=== PATIENT | male | born 1950 | race Native Hawaiian/Other Pacific Islander ===

== ENCOUNTER 2017-03-19 13:56 | Outpatient (CLI) | payer OTHER ==
[2017-03-19 14:35] LABS: PLATELET COUNT 207 K/uL (142-355)
[2017-03-19 14:52] LABS: POTASSIUM 4.5 mmol/L (3.6-5.2); SODIUM 140 mmol/L (136-145)
== END 2017-03-19 19:15 | disposition home or self-care (01) ==
LOC: LAB 13:56
PROVIDERS: Physician Assistant
DX: I10 Essential (primary) hypertension (principal); E78.4 Other hyperlipidemia; E11.9 Type 2 diabetes mellitus without complications; N40.0 Benign prostatic hyperplasia without lower urinary tract symptoms
CPT/HCPCS: 80053; 80061; 83036; 84153; 84439; 84443; 85027; 85651

== ENCOUNTER 2018-08-23 06:01 | Emergency (ER) | payer OTHER ==
[~2018-08-23] VITALS: Ht 165.1 cm; Wt 105.2 kg
[2018-08-23 06:46] LABS: PLATELET COUNT 177 K/uL (142-355)
[2018-08-23 07:32] VITALS: BP 148/77; TEMP 98
== END 2018-08-23 07:33 | disposition home or self-care (01) ==
LOC: ED 06:01
DX: J02.9 Acute pharyngitis, unspecified (principal)
CPT/HCPCS: 36415; 80053; 85027; 86308; 87502; 87651; 99283

== ENCOUNTER 2019-02-20 07:14 | Outpatient (CLI) | payer OTHER ==
[2019-02-20 08:36] LABS: PLATELET COUNT 190 K/uL (142-355)
[2019-02-20 08:42] LABS: POTASSIUM 4.1 mmol/L (3.6-5.2); SODIUM 138 mmol/L (136-145)
== END 2019-02-20 23:32 | disposition home or self-care (01) ==
LOC: LABW 07:14
PROVIDERS: Physician Assistant
DX: I10 Essential (primary) hypertension (principal); E78.5 Hyperlipidemia, unspecified; E11.9 Type 2 diabetes mellitus without complications; J44.9 Chronic obstructive pulmonary disease, unspecified
CPT/HCPCS: 36415; 80053; 80061; 82306; 83735; 84153; 84443; 85027

== ENCOUNTER 2019-06-23 08:33 | Emergency (ER) | payer OTHER ==
[~2019-06-23] VITALS: Ht 165.1 cm; Wt 98.4 kg
[2019-06-23 09:24] LABS: PLATELET COUNT 188 K/uL (142-355)
[2019-06-23 09:33] LABS: POTASSIUM 3.8 mmol/L (3.6-5.2)
[2019-06-23 09:55] LABS: PARTIAL THROMBOPLASTIN TIME 22.8 SECONDS (24.5-33.6)
[2019-06-23 11:58] VITALS: BP 150/80; TEMP 98
== END 2019-06-23 11:58 | disposition home or self-care (01) ==
LOC: ED 08:33
PROVIDERS: Family Medicine
DX: R51 Headache (principal); R55 Syncope and collapse
CPT/HCPCS: 80053; 81000; 85027; 85610; 85730; 99283

== ENCOUNTER 2019-10-18 13:46 | Outpatient (CLI) | payer OTHER ==
[2019-10-18 14:45] LABS: POTASSIUM 3.6 mmol/L (3.6-5.2)
== END 2019-10-18 19:29 | disposition home or self-care (01) ==
LOC: LAB 13:46
PROVIDERS: Internal Medicine
DX: E11.9 Type 2 diabetes mellitus without complications (principal); E78.49 Other hyperlipidemia; E83.42 Hypomagnesemia; I10 Essential (primary) hypertension
CPT/HCPCS: 80053; 80061; 81000; 82043; 82570; 83036; 83735; 84439; 84443; 84550

== ENCOUNTER 2020-01-24 11:31 | Inpatient (IN) | payer OTHER ==
[~2020-01-24] VITALS: Ht 157.5 cm; Wt 94.4 kg
[2020-01-24 13:57] LABS: PLATELET COUNT 193 K/uL (142-355)
[2020-01-24 14:28] LABS: PARTIAL THROMBOPLASTIN TIME 22.7 SECONDS (24.5-33.6)
[2020-01-24 14:37] LABS: POTASSIUM 3.8 mmol/L (3.6-5.2); SODIUM 135 mmol/L (136-145)
[2020-01-24 15:34] VITALS: BP 125/62; TEMP 97.9; Ht 157.5 cm; Wt 94.4 kg
[2020-01-24 16:00] VITALS: BP 107/59; TEMP 97.9
[2020-01-24 20:00] VITALS: BP 153/90; TEMP 97.8
[2020-01-25] VITALS: BP 128/62; TEMP 98.4
[2020-01-25 04:00] VITALS: BP 95/55; TEMP 97.7
[2020-01-25] MEDS ORDERED: GLIP10TA55 PO (04:25)
[2020-01-25] MEDS ORDERED: ALLO300T23 PO (04:25)
[2020-01-25] MEDS ORDERED: METF500T PO (04:27)
[2020-01-25] MEDS ORDERED: NEURONTIN 100M100 MG PO (04:28)
[2020-01-25] MEDS ORDERED: TERAZOSIN2 MG PO (04:32)
[2020-01-25] MEDS ORDERED: FURO20TA67 PO (04:32)
[2020-01-25] MEDS ORDERED: CALCIUM 500+D 51 TAB PO (04:34)
[2020-01-25] MEDS ORDERED: PRAVACHOL20 MG PO (04:35)
[2020-01-25] MEDS ORDERED: METO50TA27 PO (04:36)
[2020-01-25] MEDS ORDERED: ASA LOW DOSE81 MG PO (04:37)
[2020-01-25] MEDS ORDERED: SUPER B COMP PO (04:38)
[2020-01-25] MEDS ORDERED: B-6100 MG PO (04:39)
[2020-01-25] MEDS ORDERED: IRON325 MG PO (04:40)
[2020-01-25] MEDS ORDERED: VITAMIN C TR/R500 MG PO (04:42)
[2020-01-25 06:17] LABS: PLATELET COUNT 172 K/uL (142-355)
[2020-01-25 06:19] LABS: POTASSIUM 3.2 mmol/L (3.6-5.2)
[2020-01-25 08:09] VITALS: BP 131/58; TEMP 98.3
[2020-01-25 12:06] VITALS: BP 131/75; TEMP 97.8
[2020-01-28] MEDS ORDERED: RISP0.25 PO (16:13)
[2020-01-28] MEDS ORDERED: ESCI10TA PO (16:14)
[2020-01-28] MEDS ORDERED: DONE5TAB PO (16:14)
== END 2020-01-25 15:00 | disposition other institution (70) | DRG 125 ==
LOC: MED/SURG 11:31
PROVIDERS: Internal Medicine Endocrinology, Diabetes & Metabolism; ADMIT Internal Medicine
DX: R44.1 Visual hallucinations (principal); R07.89 Other chest pain; R41.82 Altered mental status, unspecified; I10 Essential (primary) hypertension; I25.10 Atherosclerotic heart disease of native coronary artery without angina pectoris; E11.9 Type 2 diabetes mellitus without complications; E78.49 Other hyperlipidemia; R06.02 Shortness of breath
CPT/HCPCS: 80048; 80053; 81000; 82306; 82550; 82553; 82607; 82746; 84425; 84484; 85027; 85610; 85730; 87635; 93005; 94760; J1650; J1940; U0002

== ENCOUNTER 2020-02-29 08:52 | Emergency (ER) | payer OTHER ==
[~2020-02-29] VITALS: Ht 157.5 cm; Wt 96.2 kg
[~2020-02-29 08:52] MED LIST: ALLO300T23 PO; ASA LOW DOSE81 MG PO; B-6100 MG PO; CALCIUM 500+D 51 TAB PO; DONE5TAB PO; ESCI10TA PO; FURO20TA67 PO; GLIP10TA55 PO; IRON325 MG PO; METF500T PO; METO50TA27 PO; NEURONTIN 100M100 MG PO; PRAVACHOL20 MG PO; RISP0.25 PO; SUPER B COMP PO; TERAZOSIN2 MG PO; VITAMIN C TR/R500 MG PO
[2020-02-29 08:55] VITALS: BP 149/69; TEMP 98.5
[2020-02-29 09:46] LABS: PLATELET COUNT 216 K/uL (142-355)
[2020-03-04] MEDS ORDERED: ALLO300T23 PO (00:23)
[2020-03-04] MEDS ORDERED: SUPER B COMP PO (00:24)
[2020-03-04] MEDS ORDERED: ASA LOW DOSE81 MG PO (00:24)
[2020-03-04] MEDS ORDERED: DONE5TAB PO (00:25)
[2020-03-04] MEDS ORDERED: ESCI10TA PO (00:25)
[2020-03-04] MEDS ORDERED: NEURONTIN 100M100 MG PO (00:26)
[2020-03-04] MEDS ORDERED: FURO20TA67 PO (00:26)
[2020-03-04] MEDS ORDERED: METO50TA27 PO (00:27)
[2020-03-04] MEDS ORDERED: METF500T PO (00:27)
[2020-03-04] MEDS ORDERED: GLIP10TA55 PO (00:27)
[2020-03-04] MEDS ORDERED: RISP0.25 PO (00:28)
[2020-03-04] MEDS ORDERED: PRAVACHOL20 MG PO (00:28)
[2020-03-04] MEDS ORDERED: TERAZOSIN2 MG PO (00:28)
[2020-03-04] MEDS ORDERED: ACET-206 PO (00:29)
[2020-03-04] MEDS ORDERED: MAGN400T4 PO (00:31)
[2020-03-04] MEDS ORDERED: MEMA5TAB PO (00:34)
[2020-03-04] MEDS ORDERED: CALCIUM 500+D 51 TAB PO (00:35)
== END 2020-02-29 11:05 | disposition other institution (70) ==
LOC: ED 08:52
DX: R41.0 Disorientation, unspecified (principal); Z11.59 Encounter for screening for other viral diseases; Z79.899 Other long term (current) drug therapy
CPT/HCPCS: 80053; 80307; 80320; 81000; 85027; 87502; 87635; 87651; 93005; 99283; 99284; 99285; G2023; U00003

== ENCOUNTER 2020-03-04 15:51 | Inpatient (IN) | payer OTHER ==
[~2020-03-04 15:51] MED LIST changes: +ACET-206 PO; +MAGN400T4 PO; +MEMA5TAB PO
== END 2020-03-23 10:15 | disposition still patient (30) ==
LOC: PAVC 15:51
PROVIDERS: ADMIT Internal Medicine
CPT/HCPCS: 87635; U0002

== ENCOUNTER 2020-03-05 04:34 | Outpatient (CLI) | payer OTHER ==
[2020-03-05 05:44] LABS: PLATELET COUNT 245 K/uL (142-355)
[2020-03-05 06:12] LABS: POTASSIUM 3.9 mmol/L (3.6-5.2)
== END 2020-03-05 20:33 | disposition home or self-care (01) ==
LOC: LAB 04:34
PROVIDERS: Internal Medicine
DX: I11.0 Hypertensive heart disease with heart failure (principal); E78.49 Other hyperlipidemia; E11.9 Type 2 diabetes mellitus without complications; I25.119 Atherosclerotic heart disease of native coronary artery with unspecified angina pectoris; I50.9 Heart failure, unspecified
CPT/HCPCS: 80053; 80061; 83036; 83880; 84439; 84443; 85027; 87081

== ENCOUNTER 2020-03-11 05:40 | Outpatient (CLI) | payer OTHER ==
[2020-03-11 08:06] LABS: POTASSIUM 4.2 mmol/L (3.6-5.2)
== END 2020-03-11 19:25 | disposition home or self-care (01) ==
LOC: LAB 05:40
PROVIDERS: Internal Medicine
DX: R79.89 Other specified abnormal findings of blood chemistry (principal); E61.2 Magnesium deficiency
CPT/HCPCS: 80053; 83735

== ENCOUNTER 2020-03-20 10:55 | Outpatient (CLI) | payer OTHER | END 2020-03-20 19:50 | disposition home or self-care (01) | LOC: LAB 10:55 | DX: R19.5 Other fecal abnormalities (principal) | CPT/HCPCS: 83630; 87015; 87045; 87324; 87328; 87329; 87449; 87507; 87899 ==

== ENCOUNTER 2020-03-21 04:25 | Outpatient (CLI) | payer OTHER | END 2020-03-21 19:14 | disposition home or self-care (01) | LOC: LAB 04:25 | DX: Z12.5 Encounter for screening for malignant neoplasm of prostate (principal); R97.20 Elevated prostate specific antigen [PSA] | CPT/HCPCS: 84153 ==

== ENCOUNTER 2020-03-23 10:35 | Inpatient (IN) | payer OTHER | END 2020-04-23 14:03 | disposition still patient (30) | LOC: PAVC 10:35 | PROVIDERS: ADMIT Internal Medicine | CPT/HCPCS: 87635; U0002 ==

== ENCOUNTER 2020-04-23 14:47 | Inpatient (IN) | payer OTHER | END 2020-05-23 14:09 | disposition still patient (30) | LOC: PAVC 14:47 | PROVIDERS: ADMIT Internal Medicine | CPT/HCPCS: 83036 ==

== ENCOUNTER 2020-05-23 08:31 | Outpatient (CLI) | payer OTHER | END 2020-05-23 19:44 | disposition home or self-care (01) | LOC: LAB 08:31 | DX: E11.9 Type 2 diabetes mellitus without complications (principal) ==

== ENCOUNTER 2020-05-23 15:09 | Inpatient (IN) | payer OTHER | END 2020-06-23 08:00 | disposition still patient (30) | LOC: PAVC 15:09 | PROVIDERS: ADMIT Internal Medicine ==

== ENCOUNTER 2020-06-23 09:00 | Inpatient (IN) | payer OTHER | END 2020-07-23 12:25 | disposition still patient (30) | LOC: PAVC 09:00 | PROVIDERS: ADMIT Internal Medicine; ATTEND Internal Medicine ==

== ENCOUNTER 2020-07-22 15:24 | Outpatient (CLI) | payer OTHER | END 2020-07-22 22:18 | disposition home or self-care (01) | LOC: US 15:24 | PROVIDERS: ATTEND Internal Medicine | DX: M79.605 Pain in left leg (principal); M79.604 Pain in right leg ==

== ENCOUNTER 2020-07-23 12:52 | Inpatient (IN) | payer OTHER | END 2020-08-23 09:48 | disposition still patient (30) | LOC: PAVC 12:52 | PROVIDERS: ADMIT Internal Medicine; ATTEND Internal Medicine ==

== ENCOUNTER 2020-07-24 07:58 | Outpatient (CLI) | payer OTHER ==
[2020-07-24 08:21] LABS: POTASSIUM 3.4 mmol/L (3.6-5.2)
== END 2020-07-24 19:20 | disposition home or self-care (01) ==
LOC: LAB 07:58
PROVIDERS: ATTEND Internal Medicine
DX: I10 Essential (primary) hypertension (principal); E11.9 Type 2 diabetes mellitus without complications; F01.51 Vascular dementia, unspecified severity, with behavioral disturbance
CPT/HCPCS: 80048

== ENCOUNTER 2020-07-29 09:09 | Outpatient (CLI) | payer OTHER ==
[2020-07-29 09:44] LABS: POTASSIUM 3.5 mmol/L (3.6-5.2)
== END 2020-07-29 19:36 | disposition home or self-care (01) ==
LOC: LAB 09:09
PROVIDERS: ATTEND Internal Medicine
DX: I50.9 Heart failure, unspecified (principal)
CPT/HCPCS: 80048

== ENCOUNTER 2020-08-23 10:07 | Inpatient (IN) | payer OTHER | END 2020-09-23 15:31 | disposition still patient (30) | LOC: PAVC 10:07 | PROVIDERS: ADMIT Internal Medicine; ATTEND Internal Medicine ==

== ENCOUNTER 2020-08-29 06:35 | Outpatient (CLI) | payer OTHER ==
[2020-08-29 08:34] LABS: PLATELET COUNT 196 K/uL (142-355)
[2020-08-29 08:56] LABS: POTASSIUM 3.5 mmol/L (3.6-5.2)
== END 2020-08-29 21:07 | disposition home or self-care (01) ==
LOC: LABW 06:35
PROVIDERS: ATTEND Internal Medicine
DX: E11.9 Type 2 diabetes mellitus without complications (principal); I50.9 Heart failure, unspecified
CPT/HCPCS: 80053; 83036; 84439; 84443; 85027

== ENCOUNTER 2020-09-23 15:39 | Inpatient (IN) | payer OTHER | END 2020-10-21 11:16 | disposition still patient (30) | LOC: PAVC 15:39 | PROVIDERS: ADMIT Internal Medicine; ATTEND Internal Medicine ==

== ENCOUNTER 2020-10-21 11:44 | Inpatient (IN) | payer OTHER | END 2020-11-21 12:22 | disposition still patient (30) | LOC: PAVC 11:44 | PROVIDERS: ADMIT Internal Medicine; ATTEND Internal Medicine ==

== ENCOUNTER 2020-11-08 12:51 | Outpatient (CLI) | payer OTHER ==
[2020-11-08 13:31] LABS: POTASSIUM 3.8 mmol/L (3.6-5.2)
== END 2020-11-08 19:27 | disposition home or self-care (01) ==
LOC: LAB 12:51
PROVIDERS: ATTEND Internal Medicine
DX: R00.1 Bradycardia, unspecified (principal)
CPT/HCPCS: 80053; 84439; 84443

== ENCOUNTER 2020-11-20 07:47 | Outpatient (CLI) | payer OTHER | END 2020-11-20 22:34 | disposition home or self-care (01) | LOC: LAB 07:47 | PROVIDERS: ATTEND Internal Medicine | DX: I70.203 Unspecified atherosclerosis of native arteries of extremities, bilateral legs (principal) | CPT/HCPCS: 80048 ==

== ENCOUNTER 2020-11-21 13:30 | Outpatient (CLI) | payer OTHER | END 2020-11-21 21:35 | disposition home or self-care (01) | LOC: LAB 13:30 | PROVIDERS: ATTEND Internal Medicine | DX: E11.9 Type 2 diabetes mellitus without complications (principal) | CPT/HCPCS: 83036 ==

== ENCOUNTER 2020-11-21 13:50 | Inpatient (IN) | payer OTHER | END 2020-12-21 11:26 | disposition still patient (30) | LOC: PAVC 13:50 | PROVIDERS: ADMIT Internal Medicine; ATTEND Internal Medicine ==

== ENCOUNTER 2020-12-21 11:45 | Inpatient (IN) | payer OTHER | END 2021-01-21 15:45 | disposition still patient (30) | LOC: PAVC 11:45 | PROVIDERS: ADMIT Internal Medicine; ATTEND Internal Medicine ==

== ENCOUNTER 2021-01-21 16:39 | Inpatient (IN) | payer OTHER | END 2021-02-20 08:00 | disposition still patient (30) | LOC: PAVC 16:39 | PROVIDERS: ADMIT Internal Medicine; ATTEND Internal Medicine ==

== ENCOUNTER 2021-01-31 11:17 | Outpatient (CLI) | payer OTHER ==
[2021-01-31 11:27] LABS: PLATELET COUNT 188 K/uL (142-355)
[2021-01-31 11:46] LABS: POTASSIUM 3.7 mmol/L (3.6-5.2); SODIUM 140 mmol/L (136-145)
== END 2021-01-31 19:10 | disposition home or self-care (01) ==
LOC: LAB 11:17
PROVIDERS: ATTEND Internal Medicine
DX: R55 Syncope and collapse (principal); I50.9 Heart failure, unspecified; E11.9 Type 2 diabetes mellitus without complications; I11.0 Hypertensive heart disease with heart failure
CPT/HCPCS: 80053; 81000; 82550; 84443; 84484; 85027

== ENCOUNTER 2021-01-31 13:11 | Outpatient (CLI) | payer OTHER | END 2021-01-31 19:21 | disposition home or self-care (01) | LOC: CT 13:11 | PROVIDERS: ATTEND Internal Medicine | DX: R55 Syncope and collapse (principal) | CPT/HCPCS: 93005 ==

== ENCOUNTER 2021-02-20 09:00 | Inpatient (IN) | payer OTHER | END 2021-03-23 08:00 | disposition still patient (30) | LOC: PAVC 09:00 | PROVIDERS: ADMIT Internal Medicine; ATTEND Internal Medicine ==

== ENCOUNTER 2021-02-25 07:08 | Outpatient (CLI) | payer OTHER ==
[2021-02-25 14:38] LABS: PLATELET COUNT 208 K/uL (142-355)
== END 2021-02-25 19:06 | disposition home or self-care (01) ==
LOC: LAB 07:08
PROVIDERS: ATTEND Internal Medicine
DX: E11.9 Type 2 diabetes mellitus without complications (principal); F01.51 Vascular dementia, unspecified severity, with behavioral disturbance
CPT/HCPCS: 80053; 80061; 83036; 83880; 84439; 84443; 85027

== ENCOUNTER 2021-02-28 12:31 | Outpatient (CLI) | payer OTHER | END 2021-02-28 22:05 | disposition home or self-care (01) | LOC: RAD 12:31 → LAB 12:31 → RAD 22:05 | PROVIDERS: ATTEND Internal Medicine | DX: R09.89 Other specified symptoms and signs involving the circulatory and respiratory systems (principal) | CPT/HCPCS: 87070; 87205 ==

== ENCOUNTER 2021-03-23 09:00 | Inpatient (IN) | payer OTHER | END 2021-04-23 13:50 | disposition still patient (30) | LOC: PAVC 09:00 | PROVIDERS: ADMIT Internal Medicine; ATTEND Internal Medicine ==

== ENCOUNTER 2021-04-23 14:09 | Inpatient (IN) | payer OTHER | END 2021-05-23 09:39 | disposition still patient (30) | LOC: PAVC 14:09 | PROVIDERS: ADMIT Internal Medicine; ATTEND Internal Medicine ==

== ENCOUNTER 2021-05-23 08:23 | Outpatient (CLI) | payer OTHER | END 2021-05-23 18:59 | disposition home or self-care (01) | LOC: LAB 08:23 | PROVIDERS: ATTEND Internal Medicine | DX: E11.9 Type 2 diabetes mellitus without complications (principal) | CPT/HCPCS: 83036 ==

== ENCOUNTER 2021-06-06 12:19 | Outpatient (CLI) | payer OTHER | END 2021-06-06 19:56 | disposition home or self-care (01) | LOC: RAD 12:19 | PROVIDERS: ATTEND Internal Medicine | DX: S90.01XA Contusion of right ankle, initial encounter (principal); Y92.9 Unspecified place or not applicable ==

== ENCOUNTER 2021-06-19 18:49 | Outpatient (CLI) | payer OTHER ==
[2021-06-19 19:33] LABS: POTASSIUM 4.1 mmol/L (3.6-5.2)
== END 2021-06-19 20:04 | disposition home or self-care (01) ==
LOC: LAB 18:49
PROVIDERS: ATTEND Internal Medicine
DX: I11.0 Hypertensive heart disease with heart failure (principal); I50.9 Heart failure, unspecified; F01.50 Vascular dementia, unspecified severity, without behavioral disturbance, psychotic disturbance, mood disturbance, and anxiety
CPT/HCPCS: 36415; 80048

== ENCOUNTER 2021-07-23 12:46 | Inpatient (IN) | payer OTHER | END 2021-08-23 09:08 | disposition still patient (30) | LOC: PAVC 12:46 | PROVIDERS: ADMIT Internal Medicine; ATTEND Internal Medicine ==

== ENCOUNTER 2021-08-23 09:33 | Inpatient (IN) | payer OTHER | END 2021-09-23 08:58 | disposition still patient (30) | LOC: PAVC 09:33 | PROVIDERS: ADMIT Internal Medicine; ATTEND Internal Medicine ==

== ENCOUNTER 2021-08-25 07:53 | Outpatient (CLI) | payer OTHER ==
[2021-08-25 08:54] LABS: PLATELET COUNT 193 K/uL (142-355)
[2021-08-25 09:21] LABS: POTASSIUM 3.9 mmol/L (3.6-5.2)
== END 2021-08-25 18:47 | disposition home or self-care (01) ==
LOC: LAB 07:53
PROVIDERS: ATTEND Internal Medicine
DX: F01.51 Vascular dementia, unspecified severity, with behavioral disturbance (principal); I50.9 Heart failure, unspecified; I11.0 Hypertensive heart disease with heart failure
CPT/HCPCS: 80053; 84439; 84443; 85027

== ENCOUNTER 2021-09-22 14:24 | Outpatient (CLI) | payer OTHER | END 2021-09-22 19:06 | disposition home or self-care (01) | LOC: US 14:24 | PROVIDERS: ATTEND Internal Medicine | DX: R60.0 Localized edema (principal) ==

== ENCOUNTER 2021-09-23 13:13 | Inpatient (IN) | payer OTHER | END 2021-10-21 09:09 | disposition still patient (30) | LOC: PAVC 13:13 | PROVIDERS: ADMIT Internal Medicine; ATTEND Internal Medicine ==

== ENCOUNTER 2021-09-29 07:14 | Outpatient (CLI) | payer OTHER ==
[2021-09-29 08:04] LABS: POTASSIUM 3.7 mmol/L (3.6-5.2)
== END 2021-09-29 18:55 | disposition home or self-care (01) ==
LOC: LAB 07:14
PROVIDERS: ATTEND Internal Medicine
DX: G62.89 Other specified polyneuropathies (principal); J44.9 Chronic obstructive pulmonary disease, unspecified; R60.0 Localized edema
CPT/HCPCS: 80048

== ENCOUNTER 2021-10-03 15:58 | Outpatient (CLI) | payer OTHER | END 2021-10-03 20:00 | disposition home or self-care (01) | LOC: CT 15:58 | PROVIDERS: ATTEND Internal Medicine | DX: F01.51 Vascular dementia, unspecified severity, with behavioral disturbance (principal); W19.XXXA Unspecified fall, initial encounter ==

== ENCOUNTER 2021-10-21 14:16 | Inpatient (IN) | payer OTHER | END 2021-11-21 14:14 | disposition still patient (30) | LOC: PAVC 14:16 | PROVIDERS: ADMIT Internal Medicine; ATTEND Internal Medicine ==

== ENCOUNTER 2021-11-21 07:39 | Outpatient (CLI) | payer OTHER | END 2021-11-21 20:45 | disposition home or self-care (01) | LOC: LAB 07:39 | PROVIDERS: ATTEND Internal Medicine | DX: E11.9 Type 2 diabetes mellitus without complications (principal) | CPT/HCPCS: 83036 ==

== ENCOUNTER 2021-11-21 15:30 | Inpatient (IN) | payer OTHER ==
[2021-11-25] MEDS ORDERED: DONEPEZIL HYDRO10 M1 PO (15:03)
[2021-11-25] MEDS ORDERED: ASPIRIN/ENTERIC81 MG PO (15:04)
[2021-11-25] MEDS ORDERED: TAMS0.4C PO (15:12)
[2021-11-25] MEDS ORDERED: FLONASE AL50 MCG/ACT NAS (15:14)
[2021-11-25] MEDS ORDERED: LEXAPRO10 MG PO (15:15)
[2021-11-25] MEDS ORDERED: PANTOPRAZOLE 40MG TA PO (15:17)
[2021-11-25] MEDS ORDERED: GABA300C2 PO (15:19)
[2021-11-25] MEDS ORDERED: METO-837 PO (15:23)
[2021-11-25] MEDS ORDERED: MEMA10TA2 PO (15:25)
[2021-11-25] MEDS ORDERED: TYLENOL325 MG PO (15:26)
[2021-11-25] MEDS ORDERED: NITR0.4S2 SL (15:27)
[2021-11-25] MEDS ORDERED: TRAMADOL HYDROC50 MG PO (15:28)
[2021-11-25] MEDS ORDERED: RISP0.25 PO (15:36)
[2021-11-25] MEDS ORDERED: OYSTER SHELL PO (15:39)
[2021-12-03] MEDS ORDERED: RISP0.25 PO (09:52)
[2021-12-03] MEDS ORDERED: GABA300C2 PO (09:53)
[2021-12-03] MEDS ORDERED: ESCI10TA PO (09:53)
[2021-12-03] MEDS ORDERED: GLIP10TA55 PO (09:56)
[2021-12-03] MEDS ORDERED: ALLO100T22 PO (09:59)
== END 2021-12-21 10:40 | disposition still patient (30) ==
LOC: PAVC 15:30
PROVIDERS: ADMIT Internal Medicine; ATTEND Internal Medicine

== ENCOUNTER 2021-11-23 08:14 | Emergency (ER) | payer OTHER ==
[~2021-11-23] VITALS: Ht 162.6 cm; Wt 104.8 kg
[2021-11-23 08:19] VITALS: TEMP 97.8
[2021-11-23 08:49] LABS: PLATELET COUNT 165 K/uL (142-355)
[2021-11-23 09:03] LABS: PARTIAL THROMBOPLASTIN TIME 23.9 SECONDS (24.5-33.6)
[2021-11-23 11:49] VITALS: BP 128/74
== END 2021-11-23 11:51 ==
LOC: ED 08:14
PROVIDERS: Hospitalist
DX: F03.90 Unspecified dementia, unspecified severity, without behavioral disturbance, psychotic disturbance, mood disturbance, and anxiety (principal); I48.91 Unspecified atrial fibrillation; I50.9 Heart failure, unspecified
CPT/HCPCS: 36415; 80053; 80307; 80320; 81000; 82550; 83880; 84484; 85027; 85610; 85730; 93005; 99283

== ENCOUNTER 2021-12-16 08:27 | Outpatient (CLI) | payer OTHER ==
[~2021-12-16 08:27] MED LIST changes: +ALLO100T22 PO; +ASPIRIN/ENTERIC81 MG PO; +DONEPEZIL HYDRO10 M1 PO; +FLONASE AL50 MCG/ACT NAS; +GABA300C2 PO; +LEXAPRO10 MG PO; +MEMA10TA2 PO; +METO-837 PO; +NITR0.4S2 SL; +OYSTER SHELL PO; +PANTOPRAZOLE 40MG TA PO; +TAMS0.4C PO; +TRAMADOL HYDROC50 MG PO; +TYLENOL325 MG PO
[2021-12-16 08:52] LABS: POTASSIUM 3.7 mmol/L (3.6-5.2)
== END 2021-12-16 19:38 | disposition home or self-care (01) ==
LOC: LAB 08:27
PROVIDERS: ATTEND Internal Medicine
DX: R60.0 Localized edema (principal)
CPT/HCPCS: 80048

== ENCOUNTER 2021-12-19 09:51 | Outpatient (CLI) | payer OTHER ==
[2021-12-19 10:14] LABS: PLATELET COUNT 165 K/uL (142-355)
== END 2021-12-19 18:55 | disposition home or self-care (01) ==
LOC: LAB 09:51 → US 13:00 → LAB 18:55
PROVIDERS: ATTEND Internal Medicine
DX: L89.622 Pressure ulcer of left heel, stage 2 (principal); R41.82 Altered mental status, unspecified
CPT/HCPCS: 85027; 85652; 87070; 87077; 87185; 87186; 87205

== ENCOUNTER 2021-12-21 02:41 | Inpatient (IN) | payer OTHER | END 2022-01-21 10:02 | disposition still patient (30) | LOC: PAVC 02:41 | PROVIDERS: ADMIT Internal Medicine; ATTEND Internal Medicine ==

== ENCOUNTER 2021-12-23 13:33 | Outpatient (CLI) | payer OTHER | END 2021-12-23 19:46 | disposition home or self-care (01) | LOC: US 13:33 | PROVIDERS: ATTEND Internal Medicine | DX: L89.622 Pressure ulcer of left heel, stage 2 (principal) ==

== ENCOUNTER 2022-01-19 08:54 | Emergency (ER) | payer OTHER ==
[~2022-01-19] VITALS: Ht 165.1 cm; Wt 104.3 kg
[2022-01-19 08:54] VITALS: TEMP 98.7
[2022-01-19 09:45] LABS: PLATELET COUNT 148 K/uL (142-355)
[2022-01-19 10:10] LABS: POTASSIUM 3.9 mmol/L (3.6-5.2)
[2022-01-19 14:20] VITALS: BP 139/68
== END 2022-01-19 14:20 | disposition home or self-care (01) ==
LOC: ED 09:06
PROVIDERS: Emergency Medicine
DX: R53.1 Weakness (principal); Z20.822 Contact with and (suspected) exposure to COVID-19; I50.9 Heart failure, unspecified
CPT/HCPCS: 36415; 80053; 81000; 83880; 84443; 84484; 85027; 85610; 87635; 93005; 99283; U0003

== ENCOUNTER 2022-01-21 16:15 | Inpatient (IN) | payer OTHER ==
[2022-01-30] MEDS ORDERED: GLIP10TA55 PO (20:40)
[2022-01-30] MEDS ORDERED: ESCI10TA PO (20:42)
[2022-01-30] MEDS ORDERED: LEVOFLOXACIN500 MG PO (20:46)
[2022-01-30] MEDS ORDERED: METO25TA4 PO (20:48)
[2022-01-30] MEDS ORDERED: KLOR-CON M1010 MEQ PO (20:49)
[2022-01-30] MEDS ORDERED: B COMPLEX PO (20:59)
[2022-02-03] MEDS ORDERED: PREDNISONE5 MG PO (08:11)
[2022-02-03] MEDS ORDERED: DOXYCYC MONO PO (08:12)
[2022-02-10] MEDS ORDERED: TYLENOL325 MG PO (11:43)
[2022-02-16] MEDS ORDERED: FURO20TA67 PO (08:51)
[2022-02-20 08:03] LABS: PLATELET COUNT 187 K/uL (142-355)
[2022-02-20 09:25] LABS: POTASSIUM 3.4 mmol/L (3.6-5.2)
== END 2022-02-20 07:46 | disposition still patient (30) ==
LOC: PAVC 16:15
PROVIDERS: ADMIT Internal Medicine; ATTEND Internal Medicine
DX: J44.9 Chronic obstructive pulmonary disease, unspecified (principal); J96.01 Acute respiratory failure with hypoxia; J96.02 Acute respiratory failure with hypercapnia; M62.81 Muscle weakness (generalized); R26.2 Difficulty in walking, not elsewhere classified; R27.9 Unspecified lack of coordination; Z74.1 Need for assistance with personal care; R48.8 Other symbolic dysfunctions
CPT/HCPCS: 80053; 80061; 83036; 83880; 84439; 84443; 85027

== ENCOUNTER 2022-01-26 10:32 | Outpatient (CLI) | payer OTHER | END 2022-01-26 19:01 | disposition home or self-care (01) | LOC: RAD 10:32 | PROVIDERS: ATTEND Internal Medicine | DX: R05.8 Other specified cough (principal) ==

== ENCOUNTER 2022-01-30 09:39 | Inpatient (IN) | payer OTHER ==
[~2022-01-30] VITALS: Ht 165.1 cm; Wt 97.2 kg
[2022-01-30 09:44] VITALS: BP 127/54; TEMP 98.7
[2022-01-30 10:16] LABS: PLATELET COUNT 191 K/uL (142-355)
[2022-01-30 10:32] LABS: POTASSIUM 3.8 mmol/L (3.6-5.2)
[2022-01-30 10:33] LABS: PARTIAL THROMBOPLASTIN TIME 24.7 SECONDS (24.5-33.6)
[2022-01-30 18:28] VITALS: BP 150/81; TEMP 97.8; Ht 165.1 cm; Wt 97.2 kg
[2022-01-30 20:16] VITALS: BP 154/61; TEMP 98.4
[2022-01-30] MEDS ORDERED: GLIP10TA55 PO (20:40)
[2022-01-30] MEDS ORDERED: ESCI10TA PO (20:42)
[2022-01-30] MEDS ORDERED: LEVOFLOXACIN500 MG PO (20:46)
[2022-01-30] MEDS ORDERED: METO25TA4 PO (20:48)
[2022-01-30] MEDS ORDERED: KLOR-CON M1010 MEQ PO (20:49)
[2022-01-30] MEDS ORDERED: [UNRECOGNIZED DRUG - OTHER] PO (20:59)
[2022-01-30 23:46] VITALS: BP 161/77; TEMP 97.5
[2022-01-31 04:00] VITALS: BP 157/84; TEMP 98.2
[2022-01-31 05:21] LABS: POTASSIUM 3.6 mmol/L (3.6-5.2)
[2022-01-31 05:34] LABS: PLATELET COUNT 203 K/uL (142-355)
[2022-01-31 08:00] VITALS: BP 135/67; TEMP 97.5
[2022-01-31 12:00] VITALS: BP 166/93; TEMP 97.5
[2022-01-31 16:00] VITALS: BP 136/65; TEMP 98.2
[2022-01-31 20:00] VITALS: BP 156/73; TEMP 98.9
[2022-02-01] VITALS: BP 125/75
[2022-02-01 04:00] VITALS: BP 128/94; TEMP 97.5
[2022-02-01 05:44] LABS: PLATELET COUNT 218 K/uL (142-355)
[2022-02-01 06:09] LABS: POTASSIUM 3.8 mmol/L (3.6-5.2)
[2022-02-01 08:00] VITALS: BP 130/76; TEMP 97.5
[2022-02-01 12:00] VITALS: BP 176/86; TEMP 97.4
[2022-02-01 16:00] VITALS: BP 172/90; TEMP 98
[2022-02-01 20:00] VITALS: BP 109/82; TEMP 97.6
[2022-02-02 00:11] VITALS: BP 112/79; TEMP 98.1
[2022-02-02 04:29] VITALS: BP 119/86; TEMP 97.9
[2022-02-02 07:53] VITALS: BP 98/74; TEMP 98.5
[2022-02-02 11:44] VITALS: BP 148/62; TEMP 97.8
[2022-02-02 15:54] VITALS: BP 136/73; TEMP 98.2
[2022-02-02 20:00] VITALS: BP 134/77; TEMP 97.8
[2022-02-03] VITALS: BP 138/57; TEMP 97.6
[2022-02-03 04:00] VITALS: BP 132/62; TEMP 98.6
[2022-02-03 08:00] VITALS: BP 133/67; TEMP 97.9
[2022-02-03] MEDS ORDERED: PREDNISONE5 MG PO (08:11)
[2022-02-03] MEDS ORDERED: DOXYCYC MONO PO (08:12)
[2022-02-03 12:00] VITALS: BP 139/73; TEMP 98.1
== END 2022-02-03 15:38 | DRG 189 ==
LOC: ED 09:39 → MED/SURG 11:20
PROVIDERS: Hospitalist; ADMIT Internal Medicine; ATTEND Internal Medicine
DX: J96.01 Acute respiratory failure with hypoxia (principal); I50.31 Acute diastolic (congestive) heart failure; J44.0 Chronic obstructive pulmonary disease with (acute) lower respiratory infection; J44.1 Chronic obstructive pulmonary disease with (acute) exacerbation; J96.02 Acute respiratory failure with hypercapnia; F03.90 Unspecified dementia, unspecified severity, without behavioral disturbance, psychotic disturbance, mood disturbance, and anxiety; E11.65 Type 2 diabetes mellitus with hyperglycemia; E66.8 Other obesity; N40.0 Benign prostatic hyperplasia without lower urinary tract symptoms; E11.42 Type 2 diabetes mellitus with diabetic polyneuropathy; I25.10 Atherosclerotic heart disease of native coronary artery without angina pectoris; I11.0 Hypertensive heart disease with heart failure
CPT/HCPCS: 36415; 36600; 51702; 80053; 81000; 82550; 82805; 83605; 83880; 84484; 85027; 85610; 85730; 87040; 87635; 93005; 94664; 94760; 96365; 96375; 99284; J0696; J1650; J1815; J1940; J2920; J2930; J3490; Q9963; U0003

== ENCOUNTER 2022-02-08 14:41 | Inpatient (IN) | payer OTHER ==
[~2022-02-08] VITALS: Ht 165.1 cm; Wt 99.8 kg
[2022-02-08] VITALS (7 sets, daily range): BP systolic 95–118; BP diastolic 53–82; TEMP 97–99.1; Ht 165.1 cm; Wt 99.8 kg
[~2022-02-08 14:41] MED LIST changes: +B COMPLEX PO; +DOXYCYC MONO PO; +KLOR-CON M1010 MEQ PO; +LEVOFLOXACIN500 MG PO; +METO25TA4 PO; +PREDNISONE5 MG PO
[2022-02-08 15:14] LABS: PLATELET COUNT 253 K/uL (142-355)
[2022-02-08 15:23] LABS: POTASSIUM 4.5 mmol/L (3.6-5.2)
[2022-02-08 15:29] LABS: PARTIAL THROMBOPLASTIN TIME 21.4 SECONDS (24.5-33.6)
[2022-02-09 00:10] VITALS: BP 106/79; TEMP 98
[2022-02-09 04:00] VITALS: BP 119/77; TEMP 97.9
[2022-02-09 09:37] VITALS: BP 103/74; TEMP 97.7
[2022-02-09 11:30] LABS: PLATELET COUNT 198 K/uL (142-355)
[2022-02-09 11:48] LABS: POTASSIUM 3.6 mmol/L (3.6-5.2)
[2022-02-09 12:00] VITALS: BP 105/51; TEMP 97.8
[2022-02-09 16:00] VITALS: BP 109/61; TEMP 98.7
[2022-02-09 20:00] VITALS: BP 122/75; TEMP 99.3
[2022-02-10] VITALS: BP 144/57; TEMP 99.2
[2022-02-10 04:00] VITALS: BP 119/78; TEMP 98.9
[2022-02-10 05:12] LABS: PLATELET COUNT 168 K/uL (142-355)
[2022-02-10 05:31] LABS: POTASSIUM 3.6 mmol/L (3.6-5.2)
[2022-02-10 08:00] VITALS: BP 105/61; TEMP 98.3
[2022-02-10] MEDS ORDERED: TYLENOL325 MG PO (11:43)
[2022-02-10 12:00] VITALS: BP 135/85; TEMP 97.9
[2022-02-10 16:00] VITALS: BP 113/63; TEMP 99.6
[2022-02-10 20:00] VITALS: BP 144/69; TEMP 98.3
[2022-02-11] VITALS: BP 122/76; TEMP 100
[2022-02-11 04:00] VITALS: BP 137/75; TEMP 98.9
[2022-02-11 05:18] LABS: PLATELET COUNT 133 K/uL (142-355)
[2022-02-11 08:00] VITALS: BP 122/63; TEMP 97.9
[2022-02-11 12:00] VITALS: BP 145/80; TEMP 98.8
[2022-02-11 13:12] LABS: POTASSIUM 3.9 mmol/L (3.6-5.2)
[2022-02-11 16:00] VITALS: BP 104/63; TEMP 97
[2022-02-11 20:00] VITALS: BP 97/69; TEMP 98.8
[2022-02-12] VITALS (7 sets, daily range): BP systolic 106–133; BP diastolic 59–75; TEMP 97.7–99
[2022-02-12 03:51] LABS: PLATELET COUNT 103 K/uL (142-355)
[2022-02-12 10:31] LABS: POTASSIUM 3.5 mmol/L (3.6-5.2)
[2022-02-13 04:00] VITALS: BP 98/62; TEMP 98.8
[2022-02-13 06:28] LABS: PLATELET COUNT 96 K/uL (142-355)
[2022-02-13 06:58] LABS: POTASSIUM 3.8 mmol/L (3.6-5.2)
[2022-02-13 08:00] VITALS: BP 110/72; TEMP 98.9
[2022-02-13 12:00] VITALS: BP 133/82; TEMP 98.4
[2022-02-13 16:00] VITALS: BP 141/93; TEMP 99
[2022-02-13 19:44] VITALS: BP 119/65; TEMP 97.4
[2022-02-13 23:49] VITALS: BP 142/81; TEMP 98.3
[2022-02-14 04:00] VITALS: BP 140/78; TEMP 97.6
[2022-02-14 05:01] LABS: PLATELET COUNT 89 K/uL (142-355)
[2022-02-14 05:12] LABS: POTASSIUM 3.4 mmol/L (3.6-5.2)
[2022-02-14 08:00] VITALS: BP 128/86; TEMP 96.4
[2022-02-14 12:00] VITALS: BP 148/91; TEMP 97.4
[2022-02-14 16:00] VITALS: BP 131/89; TEMP 98.6
[2022-02-14 20:00] VITALS: BP 122/84; TEMP 98
[2022-02-15] VITALS: BP 118/72; TEMP 98.5
[2022-02-15 04:00] VITALS: BP 125/75; TEMP 98.9
[2022-02-15 06:06] LABS: PLATELET COUNT 92 K/uL (142-355)
[2022-02-15 08:00] VITALS: BP 109/73; TEMP 97.6
[2022-02-15 08:15] LABS: POTASSIUM 3.4 mmol/L (3.6-5.2)
[2022-02-15 11:37] VITALS: BP 118/74; TEMP 98
[2022-02-15 15:44] VITALS: BP 125/71; TEMP 98.2
[2022-02-15 19:26] VITALS: BP 114/83; TEMP 98.4
[2022-02-16] VITALS: BP 124/76; TEMP 98.5
[2022-02-16 03:39] LABS: PLATELET COUNT 117 K/uL (142-355)
[2022-02-16 04:00] VITALS: BP 103/78; TEMP 97.9
[2022-02-16 08:00] VITALS: BP 114/56; TEMP 97.5
[2022-02-16] MEDS ORDERED: FURO20TA67 PO (08:51)
== END 2022-02-16 09:51 | DRG 871 ==
LOC: ED 14:41 → MED/SURG 16:30
PROVIDERS: Internal Medicine; ADMIT Hospitalist; ATTEND Internal Medicine
DX: A41.89 Other specified sepsis (principal); I50.33 Acute on chronic diastolic (congestive) heart failure; G92.8 Other toxic encephalopathy; E87.0 Hyperosmolality and hypernatremia; I13.0 Hypertensive heart and chronic kidney disease with heart failure and stage 1 through stage 4 chronic kidney disease, or unspecified chronic kidney disease; N18.4 Chronic kidney disease, stage 4 (severe); N17.8 Other acute kidney failure; E87.2 Acidosis; E87.8 Other disorders of electrolyte and fluid balance, not elsewhere classified; D69.6 Thrombocytopenia, unspecified; F03.90 Unspecified dementia, unspecified severity, without behavioral disturbance, psychotic disturbance, mood disturbance, and anxiety; Z99.81 Dependence on supplemental oxygen; N40.0 Benign prostatic hyperplasia without lower urinary tract symptoms; E78.49 Other hyperlipidemia; E11.42 Type 2 diabetes mellitus with diabetic polyneuropathy; E11.65 Type 2 diabetes mellitus with hyperglycemia; J44.9 Chronic obstructive pulmonary disease, unspecified; E11.22 Type 2 diabetes mellitus with diabetic chronic kidney disease; Z86.73 Personal history of transient ischemic attack (TIA), and cerebral infarction without residual deficits; L89.322 Pressure ulcer of left buttock, stage 2; L89.312 Pressure ulcer of right buttock, stage 2
CPT/HCPCS: 36415; 36416; 36600; 51702; 80048; 80053; 80202; 81002; 81015; 82550; 82805; 82947; 83605; 83880; 84484; 85027; 85610; 85730; 87040; 87635; 93005; 94664; 94760; 96360; 96365; 96375; 99284; J1650; J1815; J1956; J2543; J3370; J3490; U0003

== ENCOUNTER 2022-02-19 10:00 | Outpatient (CLI) | payer OTHER | END 2022-02-19 14:00 | disposition home or self-care (01) | LOC: US 10:00 | PROVIDERS: ATTEND Internal Medicine | DX: R60.0 Localized edema (principal) ==

== ENCOUNTER 2022-02-20 08:51 | Inpatient (IN) | payer OTHER | END 2022-03-23 09:11 | disposition still patient (30) | LOC: PAVC 08:51 | PROVIDERS: ADMIT Internal Medicine; ATTEND Internal Medicine | DX: E87.0 Hyperosmolality and hypernatremia (principal); M62.81 Muscle weakness (generalized); R26.2 Difficulty in walking, not elsewhere classified; R26.81 Unsteadiness on feet; Z74.1 Need for assistance with personal care; R13.11 Dysphagia, oral phase | CPT/HCPCS: 80053; 80061; 83036; 83880; 84439; 84443; 85027 ==

== ENCOUNTER 2022-03-02 08:45 | Emergency (ER) | payer OTHER ==
[~2022-03-02] VITALS: Ht 165.1 cm; Wt 99.8 kg
[2022-03-02 08:53] VITALS: TEMP 97.2
[2022-03-02 09:16] LABS: PLATELET COUNT 228 K/uL (142-355)
[2022-03-02 12:41] VITALS: BP 121/74
== END 2022-03-02 13:07 ==
LOC: ED 08:45
PROVIDERS: Emergency Medicine Emergency Medical Services
DX: E83.42 Hypomagnesemia (principal); R41.82 Altered mental status, unspecified
CPT/HCPCS: 36415; 80053; 81002; 83605; 83735; 84484; 85027; 93005; 96365; 99284; J3475

== ENCOUNTER 2022-03-23 10:24 | Inpatient (IN) | payer OTHER | END 2022-04-23 09:14 | disposition still patient (30) | LOC: PAVC 10:24 | PROVIDERS: ADMIT Internal Medicine; ATTEND Internal Medicine ==

== ENCOUNTER 2022-04-23 15:01 | Inpatient (IN) | payer OTHER | END 2022-05-23 10:39 | disposition still patient (30) | LOC: PAVC 15:01 | PROVIDERS: ADMIT Internal Medicine; ATTEND Internal Medicine ==

== ENCOUNTER 2022-05-03 14:15 | Emergency (ER) | payer OTHER ==
[~2022-05-03] VITALS: Ht 165.1 cm; Wt 87.5 kg
[2022-05-03 14:22] VITALS: TEMP 98.4
[2022-05-03 14:53] LABS: PLATELET COUNT 251 K/uL (142-355)
[2022-05-03 15:47] LABS: POTASSIUM 4.6 mmol/L (3.6-5.2)
[2022-05-03 17:44] VITALS: BP 99/69
== END 2022-05-03 17:52 ==
LOC: ED 14:15
PROVIDERS: Family Medicine
DX: R06.2 Wheezing (principal); B34.9 Viral infection, unspecified
CPT/HCPCS: 36415; 80053; 82150; 83690; 83880; 84484; 85027; 87040; 93005; 94664; 99283

== ENCOUNTER 2022-05-23 14:48 | Inpatient (IN) | payer OTHER | END 2022-06-23 12:15 | disposition still patient (30) | LOC: PAVC 14:48 | PROVIDERS: ADMIT Internal Medicine; ATTEND Internal Medicine ==

== ENCOUNTER 2022-05-25 09:01 | Outpatient (CLI) | payer OTHER | END 2022-05-25 20:39 | disposition home or self-care (01) | LOC: LAB 09:01 | PROVIDERS: ATTEND Internal Medicine | DX: E11.65 Type 2 diabetes mellitus with hyperglycemia (principal) | CPT/HCPCS: 83036 ==

== ENCOUNTER 2022-05-28 08:45 | Emergency (ER) | payer OTHER ==
[~2022-05-28] VITALS: Ht 165.1 cm; Wt 87.5 kg
[2022-05-28 08:46] VITALS: TEMP 97.1
[2022-05-28 09:13] LABS: PLATELET COUNT 198 K/uL (142-355)
[2022-05-28 09:20] LABS: POTASSIUM 3.9 mmol/L (3.6-5.2)
[2022-05-28 10:30] VITALS: BP 101/65
== END 2022-05-28 10:55 ==
LOC: ED 08:45
PROVIDERS: Emergency Medicine
DX: N39.0 Urinary tract infection, site not specified (principal); F03.90 Unspecified dementia, unspecified severity, without behavioral disturbance, psychotic disturbance, mood disturbance, and anxiety
CPT/HCPCS: 80053; 81000; 82550; 83605; 83880; 84484; 85027; 87086; 87088; 93005; 96360; 96365; 99284; J0696

== ENCOUNTER 2022-06-23 14:13 | Inpatient (IN) | payer OTHER | END 2022-07-23 15:32 | disposition still patient (30) | LOC: PAVC 14:13 | PROVIDERS: ADMIT Internal Medicine; ATTEND Internal Medicine ==

== ENCOUNTER 2022-07-22 14:07 | Outpatient (CLI) | payer OTHER | END 2022-07-22 19:40 | disposition home or self-care (01) | LOC: RAD 14:07 | PROVIDERS: ATTEND Internal Medicine | DX: R06.2 Wheezing (principal) ==

== ENCOUNTER 2022-07-23 16:17 | Inpatient (IN) | payer OTHER | END 2022-08-23 10:51 | disposition still patient (30) | LOC: PAVC 16:17 | PROVIDERS: ADMIT Internal Medicine; ATTEND Internal Medicine ==

== ENCOUNTER 2022-07-30 10:04 | Emergency (ER) | payer OTHER ==
[~2022-07-30] VITALS: Ht 177.8 cm; Wt 80.7 kg
[2022-07-30 10:10] VITALS: TEMP 98.4
[2022-07-30 10:29] LABS: PLATELET COUNT 196 K/uL (142-355)
[2022-07-30 10:38] LABS: POTASSIUM 3.8 mmol/L (3.6-5.2)
[2022-07-30 10:43] LABS: PARTIAL THROMBOPLASTIN TIME 27.4 SECONDS (24.5-33.6)
[2022-07-30 11:52] VITALS: BP 118/94
== END 2022-07-30 11:54 ==
LOC: ED 10:04
PROVIDERS: Emergency Medicine
DX: U07.1 COVID-19 (principal); F03.90 Unspecified dementia, unspecified severity, without behavioral disturbance, psychotic disturbance, mood disturbance, and anxiety
CPT/HCPCS: 80053; 83605; 83880; 84484; 85027; 85379; 85610; 85730; 87502; 93005; 99283

== ENCOUNTER 2022-08-23 14:24 | Inpatient (IN) | payer OTHER | END 2022-09-23 09:28 | disposition still patient (30) | LOC: PAVC 14:24 | PROVIDERS: ADMIT Internal Medicine; ATTEND Internal Medicine ==

== ENCOUNTER 2022-08-24 08:44 | Outpatient (CLI) | payer OTHER ==
[2022-08-24 09:11] LABS: PLATELET COUNT 186 K/uL (142-355)
[2022-08-24 09:17] LABS: POTASSIUM 3.8 mmol/L (3.6-5.2)
== END 2022-08-24 19:05 | disposition home or self-care (01) ==
LOC: LAB 08:44
PROVIDERS: ATTEND Internal Medicine
DX: E11.65 Type 2 diabetes mellitus with hyperglycemia (principal); F01.518 Vascular dementia, unspecified severity, with other behavioral disturbance
CPT/HCPCS: 80053; 83036; 84439; 84443; 85027

== ENCOUNTER 2022-09-23 12:28 | Inpatient (IN) | payer OTHER | END 2022-10-21 15:21 | disposition still patient (30) | LOC: PAVC 12:28 | PROVIDERS: ADMIT Internal Medicine; ATTEND Internal Medicine ==

== ENCOUNTER 2022-10-21 16:14 | Inpatient (IN) | payer OTHER ==
[2022-11-21] MEDS ORDERED: ALLO100T22 PO (17:07)
[2022-11-21] MEDS ORDERED: [UNRECOGNIZED DRUG - CODE] PO (17:08)
[2022-11-21] MEDS ORDERED: PRAVASTATIN PO (17:11)
[2022-11-21] MEDS ORDERED: NITROGLYCERIN PO (17:11)
[2022-11-21] MEDS ORDERED: RISP0.5T2 PO (17:12)
[2022-11-21] MEDS ORDERED: SILVADENE1 % TOP (17:13)
[2022-11-21] MEDS ORDERED: FURO20TA67 PO (17:15)
[2022-11-21] MEDS ORDERED: ELIQUIS5 MG PO (17:15)
[2022-11-21] MEDS ORDERED: GABA300C2 PO ×2 (17:16→17:17)
[2022-11-21] MEDS ORDERED: GLIPIZIDE PO (17:17)
[2022-11-21] MEDS ORDERED: ESCI10TA PO (17:18)
[2022-11-21] MEDS ORDERED: MAGOX 400400 M1 PO (17:18)
[2022-11-21] MEDS ORDERED: MEGE40TA32 PO (17:19)
[2022-11-21] MEDS ORDERED: MULTIVITAMI1 PO (17:20)
== END 2022-11-21 12:53 | disposition still patient (30) ==
LOC: PAVC 16:14
PROVIDERS: ADMIT Internal Medicine; ATTEND Internal Medicine

== ENCOUNTER 2022-11-20 13:32 | Inpatient (IN) | payer OTHER ==
[~2022-11-20] VITALS: Ht 170.2 cm; Wt 71.2 kg
[2022-11-20 14:28] LABS: PLATELET COUNT 194 K/uL (142-355)
[2022-11-20 14:32] LABS: POTASSIUM 3.9 mmol/L (3.6-5.2)
[2022-11-20 18:01] VITALS: BP 111/79; TEMP 97; Ht 170.2 cm; Wt 71.2 kg
[2022-11-20 19:53] VITALS: BP 92/47; TEMP 98.5
[2022-11-20 23:41] VITALS: BP 112/77; TEMP 98.2
[2022-11-21 03:42] VITALS: BP 110/77; TEMP 98
[2022-11-21 04:43] LABS: PLATELET COUNT 176 K/uL (142-355)
[2022-11-21 05:17] LABS: POTASSIUM 3.5 mmol/L (3.6-5.2)
[2022-11-21 08:00] VITALS: BP 114/79; TEMP 97.6
[2022-11-21 12:00] VITALS: BP 118/68; TEMP 98
[2022-11-21 16:00] VITALS: BP 116/75; TEMP 97.9
[2022-11-21] MEDS ORDERED: ALLO100T22 PO (17:07)
[2022-11-21] MEDS ORDERED: [UNRECOGNIZED DRUG - CODE] PO (17:08)
[2022-11-21] MEDS ORDERED: NITROGLYCERIN PO (17:11)
[2022-11-21] MEDS ORDERED: PRAVASTATIN PO (17:11)
[2022-11-21] MEDS ORDERED: RISP0.5T2 PO (17:12)
[2022-11-21] MEDS ORDERED: SILVADENE1 % TOP (17:13)
[2022-11-21] MEDS ORDERED: FURO20TA67 PO (17:15)
[2022-11-21] MEDS ORDERED: ELIQUIS5 MG PO (17:15)
[2022-11-21] MEDS ORDERED: GABA300C2 PO ×2 (17:16→17:17)
[2022-11-21] MEDS ORDERED: GLIPIZIDE PO (17:17)
[2022-11-21] MEDS ORDERED: ESCI10TA PO (17:18)
[2022-11-21] MEDS ORDERED: MAGOX 400400 M1 PO (17:18)
[2022-11-21] MEDS ORDERED: MEGE40TA32 PO (17:19)
[2022-11-21] MEDS ORDERED: MULTIVITAMI1 PO (17:20)
[2022-11-21 19:55] VITALS: BP 147/110; TEMP 97
[2022-11-22] VITALS: BP 138/80; TEMP 98.6
[2022-11-22 03:58] VITALS: BP 132/68; TEMP 97.2
[2022-11-22 04:58] LABS: PLATELET COUNT 162 K/uL (142-355)
[2022-11-22 05:21] LABS: POTASSIUM 3.4 mmol/L (3.6-5.2)
[2022-11-22 08:29] VITALS: BP 128/78; TEMP 98.5
[2022-11-22 12:29] VITALS: BP 92/54; TEMP 98
[2022-11-22 16:00] VITALS: BP 112/72; TEMP 97.8
[2022-11-22 19:38] VITALS: BP 104/52; TEMP 98.4
[2022-11-23] VITALS: BP 118/75; TEMP 98.7
[2022-11-23 03:37] VITALS: BP 122/92; TEMP 97.3
[2022-11-23 05:02] LABS: PLATELET COUNT 152 K/uL (142-355)
[2022-11-23 05:16] LABS: POTASSIUM 3.8 mmol/L (3.6-5.2)
[2022-11-23 08:00] VITALS: BP 98/63; TEMP 97.5
[2022-11-23] MEDS ORDERED: DIFLUCAN 100MG TAB PO (11:09)
[2022-11-23] MEDS ORDERED: CEFTRIAXONE1 GM IM (11:10)
[2022-11-23 12:00] VITALS: BP 136/50; TEMP 97.9
== END 2022-11-23 13:44 | disposition home or self-care (01) | DRG 727 ==
LOC: ED 13:32 → MED/SURG 15:15
PROVIDERS: Internal Medicine; ADMIT Internal Medicine; ATTEND Internal Medicine
DX: B37.41 Candidal cystitis and urethritis (principal); G92.8 Other toxic encephalopathy; E87.0 Hyperosmolality and hypernatremia; I13.0 Hypertensive heart and chronic kidney disease with heart failure and stage 1 through stage 4 chronic kidney disease, or unspecified chronic kidney disease; D72.828 Other elevated white blood cell count; R41.82 Altered mental status, unspecified; R53.81 Other malaise; E78.49 Other hyperlipidemia; J44.9 Chronic obstructive pulmonary disease, unspecified; N40.0 Benign prostatic hyperplasia without lower urinary tract symptoms; I25.10 Atherosclerotic heart disease of native coronary artery without angina pectoris; R13.19 Other dysphagia; E11.22 Type 2 diabetes mellitus with diabetic chronic kidney disease; E11.65 Type 2 diabetes mellitus with hyperglycemia; N18.31 Chronic kidney disease, stage 3a; I50.9 Heart failure, unspecified; L89.152 Pressure ulcer of sacral region, stage 2
CPT/HCPCS: 36415; 80053; 81000; 83735; 85027; 87040; 87077; 87088; 87502; 87635; 96361; 96365; 99284; J0696; J1815; U0003

== ENCOUNTER 2022-11-21 13:23 | Inpatient (IN) | payer OTHER ==
[2022-11-21] MEDS ORDERED: ALLO100T22 PO (17:07)
[2022-11-21] MEDS ORDERED: [UNRECOGNIZED DRUG - CODE] PO (17:08)
[2022-11-21] MEDS ORDERED: NITROGLYCERIN PO (17:11)
[2022-11-21] MEDS ORDERED: PRAVASTATIN PO (17:11)
[2022-11-21] MEDS ORDERED: RISP0.5T2 PO (17:12)
[2022-11-21] MEDS ORDERED: SILVADENE1 % TOP (17:13)
[2022-11-21] MEDS ORDERED: ELIQUIS5 MG PO (17:15)
[2022-11-21] MEDS ORDERED: FURO20TA67 PO (17:15)
[2022-11-21] MEDS ORDERED: GABA300C2 PO ×2 (17:16→17:17)
[2022-11-21] MEDS ORDERED: GLIPIZIDE PO (17:17)
[2022-11-21] MEDS ORDERED: MAGOX 400400 M1 PO (17:18)
[2022-11-21] MEDS ORDERED: ESCI10TA PO (17:18)
[2022-11-21] MEDS ORDERED: MEGE40TA32 PO (17:19)
[2022-11-21] MEDS ORDERED: MULTIVITAMI1 PO (17:20)
[2022-11-23] MEDS ORDERED: DIFLUCAN 100MG TAB PO (11:09)
[2022-11-23] MEDS ORDERED: CEFTRIAXONE1 GM IM (11:10)
== END 2022-12-21 16:43 | disposition still patient (30) ==
LOC: PAVC 13:23
PROVIDERS: ADMIT Internal Medicine; ATTEND Internal Medicine
CPT/HCPCS: 83036

== ENCOUNTER 2022-12-15 03:50 | Emergency (ER) | payer OTHER ==
[~2022-12-15] VITALS: Ht 170.2 cm; Wt 66.9 kg
[2022-12-15 03:50] VITALS: BP 101/63; TEMP 99
[~2022-12-15 03:50] MED LIST changes: +CEFTRIAXONE1 GM IM; +DIFLUCAN 100MG TAB PO; +ELIQUIS5 MG PO; +GLIPIZIDE PO; +MAGOX 400400 M1 PO; +MEGE40TA32 PO; +MULTIVITAMI1 PO; +NITROGLYCERIN PO; +PRAVASTATIN PO; +RISP0.5T2 PO; +SILVADENE1 % TOP; +[UNRECOGNIZED DRUG - CODE] PO
[2022-12-15 04:31] LABS: PLATELET COUNT 218 K/uL (142-355)
[2022-12-15 04:39] LABS: POTASSIUM 4.2 mmol/L (3.6-5.2)
== END 2022-12-15 08:08 | disposition home or self-care (01) ==
LOC: ED 03:50
PROVIDERS: Emergency Medicine Emergency Medical Services
DX: N39.0 Urinary tract infection, site not specified (principal); I50.9 Heart failure, unspecified
CPT/HCPCS: 36415; 80053; 81000; 83735; 83880; 84484; 85027; 87040; 87077; 87088; 93005; 94664; 96361; 96374; 99284; J0696

== ENCOUNTER 2022-12-17 15:50 | Outpatient (CLI) | payer OTHER | END 2022-12-17 17:30 | disposition home or self-care (01) | LOC: RAD 15:50 | PROVIDERS: ATTEND Internal Medicine | DX: Z03.822 Encounter for observation for suspected aspirated (inhaled) foreign body ruled out (principal) ==

== ENCOUNTER 2022-12-21 17:47 | Inpatient (IN) | payer OTHER ==
[2022-12-29] MEDS ORDERED: ERTAPENEM1 GM IM (09:26)
== END 2023-01-21 12:20 | disposition still patient (30) ==
LOC: PAVC 17:47
PROVIDERS: ADMIT Internal Medicine; ATTEND Internal Medicine

== ENCOUNTER 2022-12-27 10:24 | Observation (INO) | payer OTHER ==
[2022-12-27] VITALS (7 sets, daily range): BP systolic 73–118; BP diastolic 36–66; TEMP 96.5–97.4; Ht 152.4 cm; Wt 70.0 kg
[~2022-12-27] VITALS: Ht 152.4 cm; Wt 70.0 kg
[2022-12-27 10:50] LABS: PLATELET COUNT 217 K/uL (142-355)
[2022-12-27 11:04] LABS: POTASSIUM 3.5 mmol/L (3.6-5.2)
[2022-12-28] VITALS: BP 107/56; TEMP 97.7
[2022-12-28 00:37] VITALS: TEMP 97.7
[2022-12-28 05:24] LABS: PLATELET COUNT 222 K/uL (142-355)
[2022-12-28 05:38] LABS: POTASSIUM 3.6 mmol/L (3.6-5.2)
[2022-12-28 12:00] VITALS: BP 121/78; TEMP 98.1
[2022-12-28 16:26] VITALS: BP 98/56; TEMP 97.9
[2022-12-28 20:00] VITALS: BP 98/56; TEMP 97.7
[2022-12-28 23:31] VITALS: BP 122/67; TEMP 98.4
[2022-12-29 03:43] VITALS: BP 100/66; TEMP 98.3
[2022-12-29 07:12] LABS: PLATELET COUNT 212 K/uL (142-355)
[2022-12-29 07:25] LABS: POTASSIUM 3.7 mmol/L (3.6-5.2)
[2022-12-29 08:00] VITALS: BP 119/77; TEMP 97.6
[2022-12-29] MEDS ORDERED: ERTAPENEM1 GM IM (09:26)
== END 2022-12-29 11:30 ==
LOC: ED 10:24 → MED/SURG 12:04
PROVIDERS: ADMIT Family Medicine; ATTEND Internal Medicine
DX: R41.82 Altered mental status, unspecified (principal); N39.0 Urinary tract infection, site not specified; I95.89 Other hypotension; I50.9 Heart failure, unspecified; E11.65 Type 2 diabetes mellitus with hyperglycemia
CPT/HCPCS: 36415; 80048; 80053; 81000; 82948; 84484; 85027; 87086; 87088; 93005; 96360; 96361; 96365; 96367; 99221; 99284; G0378; J1335; J3490

== ENCOUNTER 2023-01-21 12:30 | Inpatient (IN) | payer OTHER ==
[~2023-01-21 12:30] MED LIST changes: +ERTAPENEM1 GM IM
[2023-02-04] MEDS ORDERED: GLUCERNA CAL PO (15:33)
[2023-02-05] MEDS ORDERED: MAGIC CUP PO (15:31)
[2023-02-09] MEDS ORDERED: DIFLUCAN 100MG TAB PO (10:08)
[2023-02-09] MEDS ORDERED: AMOX875T8 PO (10:08)
== END 2023-02-20 17:42 | disposition still patient (30) ==
LOC: PAVC 12:30
PROVIDERS: ADMIT Internal Medicine; ATTEND Internal Medicine

== ENCOUNTER 2023-02-05 03:35 | Inpatient (IN) | payer OTHER ==
[2023-02-05] VITALS (12 sets, daily range): BP systolic 94–130; BP diastolic 48–90; TEMP 97.9–98.3; Ht 152.4 cm; Wt 67.2 kg
[~2023-02-05] VITALS: Ht 152.4 cm; Wt 67.2 kg
[~2023-02-05 03:35] MED LIST changes: +GLUCERNA CAL PO
[2023-02-05 04:43] LABS: PLATELET COUNT 195 K/uL (142-355)
[2023-02-05 04:48] LABS: POTASSIUM 3.6 mmol/L (3.6-5.2)
[2023-02-05] MEDS ORDERED: MAGIC CUP PO (15:31)
[2023-02-06] VITALS: BP 77/45; TEMP 98
[2023-02-06 04:00] VITALS: BP 99/52; TEMP 98.2
[2023-02-06 07:35] LABS: PLATELET COUNT 170 K/uL (142-355)
[2023-02-06 07:55] LABS: POTASSIUM 3.2 mmol/L (3.6-5.2)
[2023-02-06 08:00] VITALS: BP 108/58; TEMP 98.2
[2023-02-06 12:00] VITALS: BP 100/42; TEMP 99.5
[2023-02-06 16:00] VITALS: BP 102/60; TEMP 99.8
[2023-02-06 20:00] VITALS: BP 107/65; TEMP 98.6
[2023-02-07] VITALS: BP 91/51; TEMP 98.8
[2023-02-07 04:00] VITALS: BP 100/56; TEMP 98.4
[2023-02-07 05:43] LABS: PLATELET COUNT 169 K/uL (142-355)
[2023-02-07 08:00] VITALS: BP 102/58; TEMP 98.2
[2023-02-07 11:52] VITALS: BP 101/67; TEMP 98.4
[2023-02-07 15:57] VITALS: BP 126/63; TEMP 97.8
[2023-02-07 20:00] VITALS: BP 101/54; TEMP 98.9
[2023-02-08] VITALS: BP 84/54; TEMP 98.7
[2023-02-08 04:00] VITALS: BP 97/55; TEMP 98.6
[2023-02-08 04:39] LABS: PLATELET COUNT 199 K/uL (142-355)
[2023-02-08 04:58] LABS: POTASSIUM 3.2 mmol/L (3.6-5.2)
[2023-02-08 08:00] VITALS: BP 121/69; TEMP 98.2
[2023-02-08 13:00] VITALS: BP 103/57; TEMP 98.7
[2023-02-08 16:00] VITALS: BP 114/65; TEMP 98.8
[2023-02-08 20:00] VITALS: BP 123/62; TEMP 98.4
[2023-02-09] VITALS: BP 116/57; TEMP 97.8
[2023-02-09 04:00] VITALS: BP 109/56; TEMP 98.5
[2023-02-09 05:12] LABS: PLATELET COUNT 210 K/uL (142-355)
[2023-02-09 05:21] LABS: POTASSIUM 3.3 mmol/L (3.6-5.2)
[2023-02-09 07:55] VITALS: BP 100/67; TEMP 98.3
[2023-02-09] MEDS ORDERED: AMOX875T8 PO (10:08)
[2023-02-09] MEDS ORDERED: DIFLUCAN 100MG TAB PO (10:08)
[2023-02-09 12:00] VITALS: BP 124/62; TEMP 98.1
== END 2023-02-09 11:07 | DRG 91 ==
LOC: ED 03:35 → MED/SURG 10:12
PROVIDERS: Family Medicine; ADMIT Internal Medicine Endocrinology, Diabetes & Metabolism; ATTEND Internal Medicine Endocrinology, Diabetes & Metabolism
DX: G92.8 Other toxic encephalopathy (principal); J69.0 Pneumonitis due to inhalation of food and vomit; N30.00 Acute cystitis without hematuria; D72.828 Other elevated white blood cell count; I25.10 Atherosclerotic heart disease of native coronary artery without angina pectoris; F41.8 Other specified anxiety disorders; F03.90 Unspecified dementia, unspecified severity, without behavioral disturbance, psychotic disturbance, mood disturbance, and anxiety; I10 Essential (primary) hypertension; R09.02 Hypoxemia; R39.198 Other difficulties with micturition; R06.09 Other forms of dyspnea
CPT/HCPCS: 36415; 51702; 80048; 80053; 81000; 82948; 83605; 83880; 85027; 87077; 87088; 93005; 94664; 94760; 96361; 96365; 96367; 96372; 96375; 99284; J0696; J1815; J1940; J2543

== ENCOUNTER 2023-02-22 08:25 | Outpatient (CLI) | payer OTHER ==
[~2023-02-22 08:25] MED LIST changes: +AMOX875T8 PO; +MAGIC CUP PO
[2023-02-22 08:42] LABS: PLATELET COUNT 400 K/uL (142-355)
[2023-02-22 09:43] LABS: POTASSIUM 4.6 mmol/L (3.6-5.2)
== END 2023-02-22 19:25 | disposition home or self-care (01) ==
LOC: LAB 08:25
PROVIDERS: ATTEND Internal Medicine
DX: E11.65 Type 2 diabetes mellitus with hyperglycemia (principal); R06.02 Shortness of breath
CPT/HCPCS: 36415; 80053; 80061; 83036; 83880; 84439; 84443; 85027

== ENCOUNTER 2023-02-23 09:25 | Emergency (ER) | payer OTHER ==
[~2023-02-23] VITALS: Ht 165.1 cm; Wt 63.5 kg
[2023-02-23 09:49] LABS: PLATELET COUNT 349 K/uL (142-355)
[2023-02-23 09:59] LABS: POTASSIUM 4.2 mmol/L (3.6-5.2)
[2023-02-23 13:30] VITALS: BP 115/58; TEMP 97.9
== END 2023-02-23 13:30 ==
LOC: ED 09:25
PROVIDERS: Family Medicine
DX: R06.00 Dyspnea, unspecified (principal); I50.9 Heart failure, unspecified
CPT/HCPCS: 36415; 80053; 83880; 84484; 85027; 87040; 93005; 99283

== ENCOUNTER 2023-02-23 17:03 | Outpatient (CLI) | payer OTHER | END 2023-02-23 18:53 | disposition home or self-care (01) | LOC: LAB 17:03 | PROVIDERS: ATTEND Internal Medicine | DX: R41.82 Altered mental status, unspecified (principal) | CPT/HCPCS: 81000 ==

== ENCOUNTER 2023-02-25 12:28 | Outpatient (CLI) | payer OTHER | END 2023-02-25 22:30 | disposition home or self-care (01) | LOC: RAD 12:28 | PROVIDERS: ATTEND Internal Medicine | DX: R09.89 Other specified symptoms and signs involving the circulatory and respiratory systems (principal) ==